=== PATIENT | female | born 1995 | race Caucasian/White ===

== ENCOUNTER 2018-04-28 15:42 | Emergency (ER) | payer OTHER ==
[~2018-04-28] VITALS: Ht 154.9 cm; Wt 78.0 kg
[2018-04-28 15:45] VITALS: BP 135/87
--- NOTE | 2018-04-28 15:45 | NUR ---
PT AMBULATES TO BED 3
--- NOTE | 2018-04-28 15:50 | NUR ---
22/f bib self with c/o NAUSEA, intermittent "cramping" rlq radiating to right mid back with yesterday. Patient denies urinary complaints. BM NORMAL X TODAY. MED HX : GALL BLADDER REMOVAL LAST YEAR. AAOX4 WITH EVEN AND STEADY GAIT;PT DENIES ANY FEVER, CP, SOB, OR COUGH AT THIS TIME; PATIENT STATES PAIN OF 6/10 AT THIS TIME;PATIENT POSITIONED FOR COMFORT; HOB ELEVATED; BEDRAILS UP X2; BED DOWN. ER MD MADE AWARE OF PT STATUS.
[2018-04-28] MEDS ORDERED: cefTRIAXone 1,000 MG in LIDOCAINE 1% ***ER ONLY *** 2.1 ML IM ONE (16:25)
[2018-04-28] MEDS ORDERED: KETOROLAC 60 MG/2 ML VIAL IM ONE (16:25)
[2018-04-28] MEDS ORDERED: LEVOFLOXACIN 500 MG TAB PO ONE (16:25)
[2018-04-28 16:45] VITALS: BP 125/76
--- NOTE | 2018-04-28 16:45 | NUR ---
Patient discharged with v/s stable. Written and verbal after care instructions given and explained. Patient alert, oriented and verbalized understanding of instructions. Ambulatory with steady gait. All questions addressed prior to discharge. ID band removed. Patient advised to follow up with PMD. Rx of LEVAQUIN & TRAMADOL given. Patient educated on indication of medication including possible reaction and side effects. Opportunity to ask questions provided and answered.
== END 2018-04-28 16:45 | disposition home or self-care (01) ==
LOC: MED 15:42
DX: N39.0 Urinary tract infection, site not specified (principal); N30.90 Cystitis, unspecified without hematuria; Z97.5 Presence of (intrauterine) contraceptive device; Z90.49 Acquired absence of other specified parts of digestive tract
CPT/HCPCS: 81002; 81025; 87086; 96372; 99284; J0696; J1885; J2001

== ENCOUNTER 2018-05-14 10:18 | Emergency (ER) | payer OTHER ==
[~2018-05-14] VITALS: Ht 167.6 cm; Wt 79.4 kg
[2018-05-14 10:21] VITALS: BP 103/43
--- NOTE | 2018-05-14 10:25 | NUR ---
PT AMBULATED TO BED 7
[2018-05-14] MEDS ORDERED: MORPHINE SULFATE 4 MG/ML SYR IVP ONE (10:35)
--- NOTE | 2018-05-14 10:35 | NUR ---
EDMD AT BEDSIDE PERFORMING MSE
--- NOTE | 2018-05-14 10:35 | NUR ---
PT C/O LOW BACK PAIN X 1 DAY, DENIES INJURY. DENIES OTHER COMPLAINTS. STATES SHE WAS SEEN AT [facility] [place] DX WITH MUSCLE SPRAIN, SEEN BY PCP AND TOLD SHE HAS DEGENERATIVE DISK DISEASE OF SPINE. 04/01 PAIN
--- NOTE | 2018-05-14 11:00 | NUR ---
PT TO CT
[2018-05-14 11:11] LABS: BILIRUBIN,URINE NEGATIVE (NEGATIVE); BLOOD, URINE TRACE-I (NEGATIVE); COLOR,URINE YELLOW (YELLOW); LEUKOCYTE ESTERASE ,URINE SMALL (NEGATIVE); NITRITE, URINE NEGATIVE (NEGATIVE); UGLUCOSE NEGATIVE (NEGATIVE)
[2018-05-14 11:12] LABS: APPEARANCE,URINE SLIGHTLY HAZY (CLEAR)
[2018-05-14 11:17] LABS: RBC,URINE 0-5 (RARE) /HPF (0-5)
[2018-05-14 11:44] VITALS: BP 135/58
--- NOTE | 2018-05-14 11:44 | NUR ---
Patient discharged with v/s stable. Written and verbal after care instructions given and explained. Patient alert, oriented and verbalized understanding of instructions. Ambulatory with steady gait. All questions addressed prior to discharge. ID band removed. Patient advised to follow up with PMD. Rx of MOTRIN, NORCO AND FIORMAX given. Patient educated on indication of medication including possible reaction and side effects. Opportunity to ask questions provided and answered.
== END 2018-05-14 11:44 | disposition home or self-care (01) ==
LOC: MED 10:18
DX: N20.0 Calculus of kidney (principal); Z87.442 Personal history of urinary calculi
CPT/HCPCS: 74176; 81001; 81025; 87086; 96374; 99284; J2270

== ENCOUNTER 2018-08-02 21:20 | Emergency (ER) | payer OTHER ==
[~2018-08-02] VITALS: Ht 154.9 cm; Wt 79.4 kg
[2018-08-02 21:24] VITALS: BP 135/76
--- NOTE | 2018-08-02 21:26 | NUR ---
PT AMBULATORY TO ER LOBBY W/ STEADY GAIT IN STABLE CONDITION.
--- NOTE | 2018-08-02 22:01 | NUR ---
PT TAKEN TO BED 8
--- NOTE | 2018-08-02 22:04 | NUR ---
23/F PRESENTS WITH FIANCE, C/O INTERMITTENT CRAMPING R FLANK PAIN, X12 HRS, WHICH RESOLVED 30 MINS AGO. REPORTS MILD BURNING/IRRITATION WITH URINATION. PT DENIES TRAUMA/INJURY, FEVER, OR VOMITING, REPORTS MILD NAUSEA. PT AOX4, GCS 15, RR EVEN AND UNLABORED. HX CHOLECYSTECTOMY, KIDNEY STONES OTC MONASTAT FOR YEAST INFECTION AT THIS TIME.
[2018-08-02] MEDS ORDERED: KETOROLAC 30 MG/ML VIAL IVP ONE (22:20)
[2018-08-02] MEDS ORDERED: NACL 0.9% 1,000 ML IV ONE (22:20)
--- NOTE | 2018-08-02 23:39 | NUR ---
Dr. Ragsdale evaluating patient at bedside.
[2018-08-03 00:05] VITALS: BP 127/72
--- NOTE | 2018-08-03 00:05 | NUR ---
Patient discharged with v/s stable. Written and verbal after care instructions given and explained. Patient alert, oriented and verbalized understanding of instructions. Ambulatory with steady gait. All questions addressed prior to discharge. ID band removed. Patient advised to follow up with PMD. Rx of MOTRIN, NORCO, AND FLOMAX given. Patient educated on indication of medication including possible reaction and side effects. Opportunity to ask questions provided and answered.
== END 2018-08-03 00:05 | disposition home or self-care (01) ==
LOC: MED 21:20
DX: N20.0 Calculus of kidney (principal); Z90.49 Acquired absence of other specified parts of digestive tract
CPT/HCPCS: 81002; 81025; 99283; J7030

== ENCOUNTER 2019-12-05 21:29 | Emergency (ER) | payer OTHER ==
[~2019-12-05] VITALS: Ht 154.9 cm; Wt 75.3 kg
[2019-12-05 21:59] VITALS: BP 147/94
--- NOTE | 2019-12-05 22:07 | NUR ---
PT TAKEN TO BED 2
--- NOTE | 2019-12-05 22:10 | NUR ---
24 YO F BIB SELF FOR C/C OF LEFT FLANK PAIN X3 HOURS. PT STATES SHE HAS A HISTORY OF KIDNEY STONES AND KNOWS SHE IS HAVING ANOTHER "FLARE UP." DENIES TAKING OTC MEDS FOR PAIN. PT DENIES BURNING, FREQUENCY AND PAIN WITH URINATION. DENIES HEMATURIA. LMP WAS October. LBM WAS TODAY SOFT AND FORMED. DENIES N/V/D, FEVER, COUGH, SOB, AND TRAVE. BED LCOKED AND IN LOWEST POSITION. SIDE RAILS X2. NKA MED HX: KIDNEY STONES NO RX
[2019-12-05 22:50] VITALS: BP 147/94
--- NOTE | 2019-12-05 22:50 | NUR ---
Patient discharged with v/s stable. Written and verbal after care instructions given and explained. Patient alert, oriented and verbalized understanding of instructions. Ambulatory with steady gait. All questions addressed prior to discharge. ID band removed. Patient advised to follow up with PMD. Rx of ROC LITTLE NORCO given. Patient educated on indication of medication including possible reaction and side effects. Opportunity to ask questions provided and answered.
== END 2019-12-05 22:50 | disposition home or self-care (01) ==
LOC: MED 21:29
DX: R10.9 Unspecified abdominal pain (principal); Z90.49 Acquired absence of other specified parts of digestive tract
CPT/HCPCS: 81002; 81025; 99283

== ENCOUNTER 2021-07-12 09:27 | Emergency (ER) | payer OTHER ==
[~2021-07-12] VITALS: Ht 154.9 cm; Wt 74.8 kg
[2021-07-12 10:05] VITALS: BP 123/69
[2021-07-12] MEDS ORDERED: DEXAMETHASONE 10 MG/ML VIAL IM ONE (10:10)
[2021-07-12] MEDS ORDERED: KETOROLAC 30 MG/ML VIAL IM ONE (10:10)
[2021-07-12] MEDS ORDERED: TIZA4CAP PO (10:19)
--- NOTE | 2021-07-12 11:30 | NUR ---
25/F BIB SELF WITH C/O CHRONIC LOWER BACK PAIN X3 YEARS WORSENING TODAY, DENIES RECENT INJURY OR TRAUMA. PATIENT ALSO C/O DIARRHEA X2 DAYS. REPORTS USING ICY HOT FOR LOWER BACK, DENIES TAKING ANYTHING FOR DIARRHEA. DENIES ABD PAIN, N/V OR URINARY SYMPTOMS.
[2021-07-12 12:15] VITALS: BP 146/83
--- NOTE | 2021-07-12 12:15 | NUR ---
Patient discharged with v/s stable. Written and verbal after care instructions ABOUT CHRONIC BACK PAIN given and explained. Patient alert, oriented and verbalized understanding of instructions. Ambulatory with steady gait. All questions addressed prior to discharge. ID band removed. Patient advised to follow up with PMD. Rx of ZANAFLEX given. Patient educated on indication of medication including possible reaction and side effects. Opportunity to ask questions provided and answered.
== END 2021-07-12 12:15 | disposition home or self-care (01) ==
LOC: MED 09:27
DX: M54.50 Low back pain, unspecified (principal); G89.29 Other chronic pain; F12.90 Cannabis use, unspecified, uncomplicated; Z79.899 Other long term (current) drug therapy
CPT/HCPCS: 81002; 81025; 96372; 99284; J1100; J1885

== ENCOUNTER 2021-10-26 12:59 | Emergency (ER) | payer OTHER ==
[~2021-10-26] VITALS: Ht 154.9 cm; Wt 82.6 kg
[~2021-10-26 12:59] MED LIST: TIZA4CAP PO
[2021-10-26 13:03] VITALS: BP 131/81
--- NOTE | 2021-10-26 13:10 | NUR ---
FAHEEM ESCALANTE IS EVALUATING PT AT BEDSIDE
[2021-10-26] MEDS ORDERED: KETOROLAC 30 MG/ML VIAL IM ONE (13:20)
[2021-10-26] MEDS ORDERED: ACETAMINOPHEN EXTRA STRENGTH 500 MG TAB PO ONE (13:40)
--- NOTE | 2021-10-26 13:47 | NUR ---
LAB AT PATIENT BEDSIDE COLLECTING BLOODWORK
[2021-10-26 14:18] LABS: BASOPHILS % (AUTO) 0.4 % (0.0-2.0); EOSINOPHILS # (AUTO) 0.3 K/uL (0-0.4); EOSINOPHILS % (AUTO) 3.5 % (0.0-4.0); HEMATOCRIT 37.9 % (36-48); HEMOGLOBIN 12.7 g/dL (12.0-16.0); LYMPHOCYTES # (AUTO) 3.1 K/uL (2.5-16.5); LYMPHOCYTES % (AUTO) 39.4 % (20.5-51.1); MEAN CORPUSCULAR HEMOGLOBIN 30 pg (27-31); MEAN CORPUSCULAR HGB CONC 34 g/dL (33-37); MEAN CORPUSCULAR VOLUME 90.1 fL (80-94); MONOCYTES # (AUTO) 0.3 K/uL (0.8-1.0); MONOCYTES % (AUTO) 4.4 % (1.7-9.3); NEUTROPHILS % (AUTO) 52.3 % (42.2-75.2); PLATELET COUNT (AUTO) 292 K/uL (140-450); RED BLOOD CELL COUNT(AUTO) 4.21 MIL/uL (4.20-5.40); RED CELL DISTRIBUTION WIDTH 12.6 % (11.6-13.7); WHITE BLOOD COUNT (AUTO) 7.7 K/uL (4.8-10.8)
[2021-10-26 14:20] LABS: ALBUMIN 4.4 g/dL (3.4-5.0); ANION GAP 14.1 (8-16); CARBON DIOXIDE 24.4 mmol/L (21-32); CREATININE 0.6 mg/dL (0.6-1.3); POTASSIUM 3.5 mmol/L (3.5-5.1); TOTAL BILIRUBIN 0.3 mg/dL (0.0-1.0)
[2021-10-26 15:22] LABS: BILIRUBIN,URINE NEGATIVE (NEGATIVE); BLOOD, URINE 3+ (NEGATIVE); COLOR,URINE YELLOW (YELLOW); LEUKOCYTE ESTERASE ,URINE TRACE (NEGATIVE); NITRITE, URINE NEGATIVE (NEGATIVE); PH,URINE 5.5 (5.0-9.0); UGLUCOSE NEGATIVE (NEGATIVE)
[2021-10-26 15:26] LABS: APPEARANCE,URINE HAZY (CLEAR)
[2021-10-26 15:34] LABS: RBC,URINE 0-5 /HPF (0-5); WBC,URINE 0-5 /HPF (0-5)
--- NOTE | 2021-10-26 16:20 | NUR ---
ULTRASOUND AT BEDSIDE.
[2021-10-26 17:30] VITALS: BP 121/74
[2021-10-26] MEDS ORDERED: ACET-10509 PO (17:47)
[2021-10-26] MEDS ORDERED: CEPH-588 PO (17:47)
--- NOTE | 2021-10-26 18:10 | NUR ---
The patient's care was reviewed and supervised by Darrian Swanson RN.
--- NOTE | 2021-10-26 18:13 | NUR ---
Patient discharged with v/s stable. Written and verbal after care instructions given. Patient alert, oriented and verbalized understanding of instructions. Ambulatory with steady gait. All questions addressed prior to discharge. ID band removed. Patient advised to follow up with PMD. Rx of ACETAMINOPHEN AND KEFLEX given. Opportunity to ask questions provided and answered.
== END 2021-10-26 18:12 | disposition home or self-care (01) ==
LOC: MED 12:59
DX: M54.50 Low back pain, unspecified (principal); Z79.899 Other long term (current) drug therapy
CPT/HCPCS: 36415; 76801; 80053; 81001; 81025; 84702; 85025; 86900; 86901; 99284; Q0092

== ENCOUNTER 2021-10-28 13:00 | Emergency (ER) | payer OTHER ==
[~2021-10-28] VITALS: Ht 154.9 cm; Wt 81.2 kg
[~2021-10-28 13:00] MED LIST changes: +ACET-10509 PO; +CEPH-588 PO
[2021-10-28 13:13] VITALS: BP 143/87
--- NOTE | 2021-10-28 13:20 | NUR ---
PT AMBULATED TO BED 3
--- NOTE | 2021-10-28 13:26 | NUR ---
26 Y/O FEMALE BIB SELF C/O CHRONIC BACK PAIN, VAGINAL SPOTTING. PT WAS SEEN HERE ON 10/22/21 AND WAS TOLD SHE WAS . PT IS A0. PT IS HERE FOR REPEAT HCG AND RE EVALUATION OF BACK PAIN. PAIN CURRENTLY IS RATED 10/10 WHICH RADIATES TO THE LEGS. PAIN IS AGREVATED WITH BM. PT DENIES DYURIA, HEMATURIA AND FREQUENCY. PT DENIES CHEST PAIN, SOB. PT DENIES FEVER,CHILLS. BED LOCKED IN LOWEST POSITION. BED RAILX1. PMH: DENIES NKA
[2021-10-28] MEDS ORDERED: ACETAMINOPHEN 325 MG TAB PO ONE (13:45)
[2021-10-28 15:41] VITALS: BP 143/87
--- NOTE | 2021-10-28 15:41 | NUR ---
Patient discharged with v/s stable. Written and verbal after care instructions given and explained. Patient verbalized understanding. Ambulatory with steady gait. All questions addressed prior to discharge. Advised to follow up with PMD.
== END 2021-10-28 15:41 | disposition home or self-care (01) ==
LOC: MED 13:00
DX: O20.8 Other hemorrhage in early pregnancy (principal); O26.891 Other specified pregnancy related conditions, first trimester; M54.50 Low back pain, unspecified; G89.29 Other chronic pain; Z90.49 Acquired absence of other specified parts of digestive tract; Z79.899 Other long term (current) drug therapy
CPT/HCPCS: 36415; 81002; 81025; 84702; 99283

== ENCOUNTER 2021-11-12 16:58 | Emergency (ER) | payer OTHER ==
[~2021-11-12] VITALS: Ht 157.5 cm; Wt 82.1 kg
[2021-11-12 17:47] VITALS: BP 132/90
--- NOTE | 2021-11-12 18:40 | NUR ---
PT AMBULATED TO BED 8
[2021-11-12] MEDS ORDERED: ACETAMINOPHEN EXTRA STRENGTH 500 MG TAB PO ONE (18:55)
--- NOTE | 2021-11-12 19:11 | NUR ---
ULTRASOUND AT BEDSIDE
--- NOTE | 2021-11-12 19:33 | NUR ---
REPORT GIVEN TO MARIAELENA ALFONSO. TRANSFER OF CARE
[2021-11-12 19:56] LABS: BASOPHILS % (AUTO) 0.5 % (0.0-2.0); EOSINOPHILS # (AUTO) 0.3 K/uL (0-0.4); EOSINOPHILS % (AUTO) 3.6 % (0.0-4.0); HEMOGLOBIN 11.5 g/dL (12.0-16.0); LYMPHOCYTES # (AUTO) 3.5 K/uL (2.5-16.5); LYMPHOCYTES % (AUTO) 38.9 % (20.5-51.1); MEAN CORPUSCULAR HEMOGLOBIN 30 pg (27-31); MEAN CORPUSCULAR HGB CONC 33 g/dL (33-37); MEAN CORPUSCULAR VOLUME 90.5 fL (80-94); MONOCYTES # (AUTO) 0.4 K/uL (0.8-1.0); MONOCYTES % (AUTO) 4.9 % (1.7-9.3); NEUTROPHILS # (AUTO) 4.7 K/uL (1.8-7.7); NEUTROPHILS % (AUTO) 52.1 % (42.2-75.2); PLATELET COUNT (AUTO) 292 K/uL (140-450); RED BLOOD CELL COUNT(AUTO) 3.86 MIL/uL (4.20-5.40); RED CELL DISTRIBUTION WIDTH 12.5 % (11.6-13.7)
--- NOTE | 2021-11-12 20:08 | NUR ---
pt is 26 y/o f has unknown lMP. friday momrning bleeding and clorring . [place] ran test and determined pt was habing a miscarriage. Clots were about qtr sized along with cramping. FRIDAY FOLLOWED WITH OB AND ADVISED FOR DNC. PT IS HERE FOR DNC . PT HAS CHILLS. PT DENIES F/N/V/F. PAIN LEVEL 6/10 2ND VAG BLEED 6TH BACK PAIN FOUND OUT POSITIVE .PT ADVISED SHE WOULD PT HAS SOAKED 10+ PER DAY. 36 TOTAL. PMH: IRREGLAR BLEEDING GALLBLADDER REMOVED 2016 RX: NONE SOCIAL HX; MARIJUANA NKA
[2021-11-12 20:15] LABS: ALBUMIN 3.9 g/dL (3.4-5.0); ANION GAP 12.6 (8-16); CARBON DIOXIDE 25.3 mmol/L (21-32); CREATININE 0.6 mg/dL (0.6-1.3); POTASSIUM 3.9 mmol/L (3.5-5.1); TOTAL BILIRUBIN 0.3 mg/dL (0.0-1.0)
[2021-11-12 20:45] LABS: APPEARANCE,URINE CLEAR (CLEAR); BILIRUBIN,URINE NEGATIVE (NEGATIVE); BLOOD, URINE 3+ (NEGATIVE); COLOR,URINE YELLOW (YELLOW); LEUKOCYTE ESTERASE ,URINE NEGATIVE (NEGATIVE); NITRITE, URINE NEGATIVE (NEGATIVE); UGLUCOSE NEGATIVE (NEGATIVE)
--- NOTE | 2021-11-12 21:08 | NUR ---
DR SCHUMACHER AT BEDSIDE
[2021-11-12 21:30] LABS: WBC,URINE 0-5 /HPF (0-5)
[2021-11-12] MEDS ORDERED: ACET-10509 PO (21:44)
[2021-11-12 21:59] VITALS: BP 110/48
--- NOTE | 2021-11-12 21:59 | NUR ---
Patient discharged with v/s stable. Written and verbal after care instructions given and explained. Patient alert, oriented and verbalized understanding of instructions. Ambulatory with steady gait. All questions addressed prior to discharge. ID band removed. Patient advised to follow up with PMD. Rx of ACETAMETAPHIN given. Opportunity to ask questions provided and answered.
--- NOTE | 2021-11-12 21:59 | NUR ---
The patient's care was reviewed and supervised by Liliam Burkett RN.
== END 2021-11-12 21:59 | disposition home or self-care (01) ==
LOC: MED 16:58
DX: O03.9 Complete or unspecified spontaneous abortion without complication (principal); Z79.899 Other long term (current) drug therapy
CPT/HCPCS: 36415; 76817; 80053; 81001; 81025; 84702; 85025; 86900; 86901; 99284; Q0092

== ENCOUNTER 2021-11-21 17:34 | Emergency (ER) | payer OTHER ==
[~2021-11-21] VITALS: Ht 154.9 cm; Wt 81.6 kg
[2021-11-21 17:46] VITALS: BP 131/81
[2021-11-21 18:35] LABS: BASOPHILS # (AUTO) 0.1 K/uL (0.00-0.22); BASOPHILS % (AUTO) 0.5 % (0.0-2.0); EOSINOPHILS # (AUTO) 0.2 K/uL (0-0.4); EOSINOPHILS % (AUTO) 2.3 % (0.0-4.0); HEMATOCRIT 36.3 % (36-48); LYMPHOCYTES # (AUTO) 2.8 K/uL (2.5-16.5); LYMPHOCYTES % (AUTO) 26.2 % (20.5-51.1); MEAN CORPUSCULAR HEMOGLOBIN 30 pg (27-31); MEAN CORPUSCULAR HGB CONC 33 g/dL (33-37); MEAN CORPUSCULAR VOLUME 89.9 fL (80-94); MONOCYTES # (AUTO) 0.5 K/uL (0.8-1.0); MONOCYTES % (AUTO) 5.2 % (1.7-9.3); NEUTROPHILS % (AUTO) 65.8 % (42.2-75.2); PLATELET COUNT (AUTO) 303 K/uL (140-450); RED BLOOD CELL COUNT(AUTO) 4.04 MIL/uL (4.20-5.40); RED CELL DISTRIBUTION WIDTH 12.5 % (11.6-13.7); WHITE BLOOD COUNT (AUTO) 10.6 K/uL (4.8-10.8)
[2021-11-21 18:56] LABS: ALBUMIN 4.4 g/dL (3.4-5.0); ANION GAP 12.5 (8-16); CARBON DIOXIDE 27.4 mmol/L (21-32); CREATININE 0.6 mg/dL (0.6-1.3); POTASSIUM 3.9 mmol/L (3.5-5.1); TOTAL BILIRUBIN 0.7 mg/dL (0.0-1.0)
[2021-11-21 20:32] LABS: BILIRUBIN,URINE 1+ (NEGATIVE); BLOOD, URINE 3+ (NEGATIVE); COLOR,URINE YELLOW (YELLOW); LEUKOCYTE ESTERASE ,URINE NEGATIVE (NEGATIVE); NITRITE, URINE NEGATIVE (NEGATIVE); PH,URINE 5.5 (5.0-9.0); UGLUCOSE NEGATIVE (NEGATIVE)
[2021-11-21 20:33] LABS: APPEARANCE,URINE CLOUDY (CLEAR)
[2021-11-21 20:34] LABS: RBC,URINE 50-80 /HPF (0-5); WBC,URINE NONE SEEN /HPF (0-5)
--- NOTE | 2021-11-21 20:42 | NUR ---
TAKEN TO ULTRASOUND
--- NOTE | 2021-11-21 20:43 | NUR ---
PT TAKEN TO ULTRASOUND
[2021-11-21 23:13] VITALS: BP 147/77
--- NOTE | 2021-11-22 02:39 | NUR ---
PATIENT ELOPED FROM FACILITY. DISCHARGE INSTRUCTIONS NOT GIVEN TO PATIENT. NOTIFIED.
== END 2021-11-22 02:39 | disposition left against medical advice (07) ==
LOC: MED 17:34
DX: N83.201 Unspecified ovarian cyst, right side (principal); Z79.899 Other long term (current) drug therapy; Z79.2 Long term (current) use of antibiotics
CPT/HCPCS: 36415; 74176; 76830; 80053; 81001; 81025; 84702; 85025; 99284; Q0092

== ENCOUNTER 2022-05-17 16:24 | Emergency (ER) | payer OTHER ==
[~2022-05-17] VITALS: Ht 175.3 cm; Wt 81.6 kg
[2022-05-17 16:29] VITALS: BP 125/93
--- NOTE | 2022-05-17 16:38 | NUR ---
PT TO [facility]
--- NOTE | 2022-05-17 16:54 | NUR ---
phleb called pt in lobby and outside for lab draw, no answer
== END 2022-05-17 16:54 | disposition left against medical advice (07) ==
LOC: MED 16:24
DX: O26.811 Pregnancy related exhaustion and fatigue, first trimester (principal); R55 Syncope and collapse; Z3A.12 12 weeks gestation of pregnancy

== ENCOUNTER 2023-08-19 20:15 | Emergency (ER) | payer MEDICAID, OTHER ==
[~2023-08-19] VITALS: Ht 154.9 cm; Wt 97.5 kg
[2023-08-19 21:29] VITALS: BP 146/87; PULSE 74; RESP 16; TEMP 97.6; O2SAT 98
[2023-08-20 00:23] LABS: BASOPHILS # (AUTO) 0.1 K/uL (0.00-0.22); BASOPHILS % (AUTO) 0.4 % (0.0-2.0); EOSINOPHILS # (AUTO) 0.1 K/uL (0-0.4); EOSINOPHILS % (AUTO) 0.4 % (0.0-4.0); HEMOGLOBIN 12.9 g/dL (12.0-16.0); LYMPHOCYTES # (AUTO) 2.5 K/uL (2.5-16.5); LYMPHOCYTES % (AUTO) 15.3 % (20.5-51.1); MEAN CORPUSCULAR HEMOGLOBIN 29 pg (27-31); MEAN CORPUSCULAR HGB CONC 34 g/dL (33-37); MEAN CORPUSCULAR VOLUME 86.5 fL (80-94); MONOCYTES # (AUTO) 0.7 K/uL (0.8-1.0); MONOCYTES % (AUTO) 4.4 % (1.7-9.3); NEUTROPHILS # (AUTO) 12.8 K/uL (1.8-7.7); NEUTROPHILS % (AUTO) 79.5 % (42.2-75.2); PLATELET COUNT (AUTO) 318 K/uL (140-450); RED BLOOD CELL COUNT(AUTO) 4.39 MIL/uL (4.20-5.40); RED CELL DISTRIBUTION WIDTH 13.2 % (11.6-13.7)
[2023-08-20] MEDS ORDERED: TAMS0.4C96 PO (00:28)
[2023-08-20] MEDS ORDERED: IBUP-2213 PO (00:28)
[2023-08-20] MEDS ORDERED: ACET-10509 PO (00:28)
[2023-08-20] MEDS ORDERED: HYDR-5191 PO (00:32)
[2023-08-20 00:40] LABS: ANION GAP 14.6 (8-16); CALCIUM 9.4 mg/dL (8.5-10.1); CARBON DIOXIDE 22.3 mmol/L (21-32); CREATININE 0.6 mg/dL (0.6-1.3); POTASSIUM 3.9 mmol/L (3.5-5.1)
[2023-08-20] MEDS ORDERED: CEPH-588 PO (00:40)
[2023-08-20 00:44] LABS: ALBUMIN 3.9 g/dL (3.4-5.0); BILIRUBIN,DIRECT 0.1 mg/dL (0.0-0.3); TOTAL BILIRUBIN 0.4 mg/dL (0.0-1.0); TOTAL PROTEIN, SERUM 9.1 g/dL (6.4-8.2)
[2023-08-20 00:53] LABS: LACTIC ACID 0.7 mmol/L (0.4-2.0)
== END 2023-08-20 00:51 | disposition home or self-care (01) ==
LOC: MED 20:15
DX: N20.0 Calculus of kidney (principal); R31.9 Hematuria, unspecified; Z79.899 Other long term (current) drug therapy; Z87.442 Personal history of urinary calculi
CPT/HCPCS: 36415; 80048; 80076; 81002; 81025; 83605; 83690; 85025; 87040; 99283

== ENCOUNTER 2023-10-18 07:31 | Emergency (ER) | payer MEDICAID ==
[~2023-10-18] VITALS: Ht 154.9 cm; Wt 100.8 kg
[~2023-10-18 07:31] MED LIST changes: +HYDR-5071 PO; +IBUP-2213 PO; +TAMS0.4C96 PO
[2023-10-18 07:35] VITALS: BP 135/98; PULSE 96; RESP 18; TEMP 97.5; O2SAT 98
[2023-10-18] MEDS: ACETAMINOPHEN EXTRA STRENGTH 500 MG TAB PO ONE (08:00)
[2023-10-18] MEDS: ONDANSETRON 4 MG ODT PO ONE (08:01)
[2023-10-18 08:31] LABS: FLU A ANTIGEN negative (NEGATIVE); FLU B ANTIGEN negative (NEGATIVE)
[2023-10-18] MEDS ORDERED: CHLO4TAB PO (09:26)
[2023-10-18] MEDS ORDERED: ACET-10509 PO (09:26)
[2023-10-18] MEDS ORDERED: ONDA-188 PO (09:26)
[2023-10-18 09:35] VITALS: BP 113/56; PULSE 72; RESP 16; TEMP 98; O2SAT 99
== END 2023-10-18 09:35 | disposition home or self-care (01) ==
LOC: MED 07:31
DX: O99.511 Diseases of the respiratory system complicating pregnancy, first trimester (principal); R05.9 Cough, unspecified; Z20.822 Contact with and (suspected) exposure to COVID-19; Z3A.11 11 weeks gestation of pregnancy; Z79.899 Other long term (current) drug therapy
CPT/HCPCS: 71045; 87426; 87804; 99284; Q0092; Q0162

== ENCOUNTER 2024-01-30 21:50 | Emergency (ER) | payer MEDICAID ==
[~2024-01-30] VITALS: Ht 165.1 cm; Wt 95.3 kg
[~2024-01-30 21:50] MED LIST changes: +CHLO4TAB PO; +ONDA-188 PO
[2024-01-30 21:54] VITALS: BP 139/77; PULSE 109; RESP 14; TEMP 97.3; O2SAT 98
[2024-01-30 22:17] VITALS: BP 139/77; PULSE 109; RESP 14; TEMP 97.3; O2SAT 98
[2024-01-30 22:58] LABS: BASOPHILS # (AUTO) 0.1 K/uL (0.00-0.22); BASOPHILS % (AUTO) 0.4 % (0.0-2.0); EOSINOPHILS # (AUTO) 0.2 K/uL (0-0.4); EOSINOPHILS % (AUTO) 1.4 % (0.0-4.0); HEMATOCRIT 37.7 % (36-48); HEMOGLOBIN 12.2 g/dL (12.0-16.0); LYMPHOCYTES # (AUTO) 4.7 K/uL (2.5-16.5); LYMPHOCYTES % (AUTO) 34.5 % (20.5-51.1); MEAN CORPUSCULAR HEMOGLOBIN 28 pg (27-31); MEAN CORPUSCULAR HGB CONC 32 g/dL (33-37); MEAN CORPUSCULAR VOLUME 86.8 fL (80-94); MONOCYTES # (AUTO) 0.8 K/uL (0.8-1.0); MONOCYTES % (AUTO) 5.5 % (1.7-9.3); NEUTROPHILS % (AUTO) 58.2 % (42.2-75.2); PLATELET COUNT (AUTO) 324 K/uL (140-450); RED BLOOD CELL COUNT(AUTO) 4.35 MIL/uL (4.20-5.40); RED CELL DISTRIBUTION WIDTH 14.9 % (11.6-13.7); WHITE BLOOD COUNT (AUTO) 13.7 K/uL (4.8-10.8)
[2024-01-30 23:20] LABS: ANION GAP 14.4 (8-16); CARBON DIOXIDE 24.2 mmol/L (21-32); CREATININE 0.7 mg/dL (0.6-1.3); POTASSIUM 3.6 mmol/L (3.5-5.1)
[2024-01-30 23:21] LABS: INR 0.95 (0.8-1.2); PARTIAL THROMBOPLASTIN TIME 26.3 secs (22-35.6)
[2024-01-31] MEDS: KETOROLAC 30 MG/ML VIAL IM ONE (00:06)
== END 2024-01-31 00:44 | disposition home or self-care (01) ==
LOC: MED 21:50
DX: R07.9 Chest pain, unspecified (principal); F12.10 Cannabis abuse, uncomplicated; R00.0 Tachycardia, unspecified; Z79.899 Other long term (current) drug therapy
CPT/HCPCS: 36415; 71045; 80048; 81025; 83880; 84484; 85025; 85379; 85610; 85730; 93005; 96372; 99285; J1885; Q0092